=== PATIENT | female | born 1950 | race Caucasian/White ===

== ENCOUNTER 2020-07-05 10:07 | Outpatient (CLI) | payer MEDICARE, SELFPAY ==
--- NOTE | ~2020-07-05 | MM_ITS ---
EXAMINATION: MM screening sharon BI w suly HISTORY: Screening mammogram TECHNIQUE: Craniocaudal and mediolateral oblique 3-D tomosynthesis images were obtained and synthetic 2-D images were generated. CAD analysis was submitted and interpreted. COMPARISON: 04/13/2019, 01/29/2018, 05/22/2012 bilateral digital screening mammogram examinations BREAST PARENCHYMAL COMPOSITION: FINDINGS: Numerous bilateral benign microcalcifications are noted. There is no evidence of suspicious mass, calcification, or architectural distortion to suggest malignancy in either breast. There has b een no suspicious interval change. IMPRESSION: 1. No mammographic evidence of malignancy. 2. Recommend routine screening mammography in one year. BI-RADS Category 2: Benign finding(s). Reviewed, dictated and finalized at location A. OPERATOR
== END 2020-07-05 10:08 | disposition home or self-care (01) ==
PROVIDERS: PCP Family Medicine; Visit Provider Family Medicine
DX: Z12.31 Encounter for screening mammogram for malignant neoplasm of breast (principal)
CPT/HCPCS: 77063; 77067

== ENCOUNTER → 2021-02-22 13:47 | Outpatient (CLI) | payer MEDICARE, SELFPAY ==
--- NOTE | ~2021-02-22 | XR_ITS ---
EXAMINATION: XR knee LT min 4V DATE: 02/22/2021 14:14 INDICATION: Left knee pain. TECHNIQUE: 4 views of left knee were obtained. COMPARISON: None. FINDINGS: Bone alignment is normal. No fracture. Joint spaces are normal. There is a small knee joint effusion. IMPRESSION: 1. Small left knee joint effusion. Reviewed, dictated and finalized at location A.
== END ==
PROVIDERS: PCP Family Medicine; Visit Provider Physician Assistant
DX: M25.562 Pain in left knee (principal); M25.462 Effusion, left knee
CPT/HCPCS: 73564

== ENCOUNTER 2021-06-27 00:16 | Day surgery (SDC) | payer MEDICARE, SELFPAY ==
[2021-06-15 14:32] VITALS: BMI 24.0
[2021-06-27 11:11] VITALS: BP 180/102; PULSE 110; RESP 18; TEMP 36.3; O2SAT 97
[2021-06-27] MEDS: LACTATED RINGERS 1,000 ML 150 ML IV CONT (11:13)
--- NOTE | 2021-06-27 11:13 | WPDGICN ---
Assessment and Plan Assessment and plan (1) Encounter for screening colonoscopy: Code(s): Z12.11 - Encounter for screening for malignant neoplasm of colon Status: Acute Assessment and Plan: Patient presents for neoplasia screening today. it is been 10 years since last exam. She appears to be at average risk for colon polyps. GI Consult Note Consult date/time: 06/27/21 11:13 HPI: Deedee Holbrook is a 70 year old female Presents for screening colonoscopy. Patient reports that her weight appetite bowel movements are normal. She denies abdominal pain. She has had no bleeding. Family history is noncontributory. She presents today for neoplasia screening. Review of Systems Review of Systems: All systems reviewed & are unremarkable except as noted in HPI and below PMFSH Past Medical History Medical History Actinic keratosis Cataract Family History Family History Father Hypertension Patient's father is Cerebrovascular accident Mother Hypertension Patient's mother is Family history of chronic obstructive pulmonary disease Family history of congestive heart failure Social History Social History Smoking end date: 07/15/81 Alcohol intake: current Alcohol use details: occasional Living arrangements: with family Spiritual care concerns: No Meds Home Medications and Allergies Home Medications Medication Instructions Recorded Confirmed Type calcium carbonate 600 mg-vitamin 1 cap PO BID cap 05/15/19 06/19/21 History D3 5 mcg (200 unit) capsule trazodone 50 mg tablet See Rx Instructions .ROUTE 08/22/20 06/19/21 Rx .COMPLEX #90 tablet hydrochlorothiazide 12.5 mg capsule See Rx Instructions .ROUTE 11/17/20 06/19/21 Rx .COMPLEX #90 cap terbinafine HCl 250 mg tablet See Rx Instructions .ROUTE .COMPLEX 04/07/21 06/19/21 History ibuprofen 200 mg tablet 600 mg PO Q6H PRN tablet 04/11/21 06/19/21 History alendronate 70 mg tablet 70 mg PO WEEKLY #13 tablet 06/05/21 06/19/21 Rx irbesartan 300 mg tablet See Rx Instructions .ROUTE 06/14/21 06/19/21 Rx .COMPLEX #90 tablet sertraline 50 mg PO DAILY 06/15/21 06/19/21 History Allergies Allergy/AdvReac Type Severity Reaction Status Date / Time No Known Allergies Allergy Verified 06/27/21 11:09 Vital Signs Vital Signs - 24 hr 06/27/21 11:11 Temperature 97.3 F L Pulse Rate 110 H Respiratory Rate 18 Blood Pressure 180/102 H Pulse Oximetry 97 Exam Narrative: Physical exam reveals patient be alert. Vital signs stable. HEENT exam is unremarkable. Patient is anicteric. Lungs are clear to auscultation and percussion. Heart is without murmur or extra sounds. Abdominal exam bowel sounds are present soft nontender with no hepatosplenomegaly. Digital external rectal exam is normal.
--- NOTE | 2021-06-27 11:23 | P.PNAN_ITS ---
Anes - Initial Pre Proc Eval Procedure: Operation Date: 06/27/21 12:30 Proposed Procedures p Screening Colonoscopy - Satinder Tavares MD Date/Time: 06/27/21 11:23 Surgeon: Satinder Tavares MD Pre Op Diagnosis: neoplasm screening Patient Data Age: 70 Gender: F Height: 1.63 m Weight: 61 kg Last Vital Signs Temp 97.3 F L 06/27/21 11:11 Pulse 110 H 06/27/21 11:11 Resp 18 06/27/21 11:11 BP 180/102 H 06/27/21 11:11 Pulse Ox 97 06/27/21 11:11 Allergies Allergy/AdvReac Type Severity Reaction Status Date / Time No Known Allergies Allergy Verified 06/27/21 11:09 Home Medications Medication Instructions Recorded Confirmed Type calcium carbonate 600 mg-vitamin 1 cap PO BID cap 05/15/19 06/19/21 History D3 5 mcg (200 unit) capsule trazodone 50 mg tablet See Rx Instructions .ROUTE 08/22/20 06/19/21 Rx .COMPLEX #90 tablet hydrochlorothiazide 12.5 mg capsule See Rx Instructions .ROUTE 11/17/20 06/19/21 Rx .COMPLEX #90 cap terbinafine HCl 250 mg tablet See Rx Instructions .ROUTE .COMPLEX 04/07/21 06/19/21 History ibuprofen 200 mg tablet 600 mg PO Q6H PRN tablet 04/11/21 06/19/21 History alendronate 70 mg tablet 70 mg PO WEEKLY #13 tablet 06/05/21 06/19/21 Rx irbesartan 300 mg tablet See Rx Instructions .ROUTE 06/14/21 06/19/21 Rx .COMPLEX #90 tablet sertraline 50 mg PO DAILY 06/15/21 06/19/21 History Patient hx anesthesia problems: none Family hx anesthesia problems: none Results Review: All pre-operative results and documents have been reviewed as part of the pre-operative evaluation. [facility] Past Medical History Medical History Actinic keratosis Cataract Family History Family History Father Hypertension Patient's father is Cerebrovascular accident Mother Hypertension Patient's mother is Family history of chronic obstructive pulmonary disease Family history of congestive heart failure Social History Social History (Reviewed 06/19/21 @ 11:00 by Michelle Kern [facility]) Smoking end date: 07/15/81 Alcohol intake: current Alcohol use details: occasional Living arrangements: with family Spiritual care concerns: No Anes - Eval Final PreProcedure Day of Procedure 06/27/21 11:23 Patient weight: normal Heart: regular rate and rhythm Lungs: clear to auscultation Airway: Mallampati scale class II Neurological: alert and oriented Last oral intake: >/= 8 hours ASA classification: II Emergent: no Anesthetic plan: proceed Anesthesia type and monitoring: general GIVS and standard monitoring Results Review: All pre-operative results and documents have been reviewed as part of the pre-operative evaluation. Informed Consent: The patient's anesthetic plan and its attendant risks and benefits were discussed with the patient/family/POA. Questions were solicited and answers provided to the satisfaction of the patient/family/POA.
[2021-06-27 11:38] VITALS: BP 99/57; PULSE 91; RESP 20; O2SAT 100
[2021-06-27 11:48] VITALS: BP 109/66; PULSE 94; RESP 25; O2SAT 100
[2021-06-27 11:58] VITALS: BP 125/84; PULSE 84; RESP 20; O2SAT 95
== END 2021-06-27 12:08 | disposition home or self-care (01) ==
PROVIDERS: PCP Family Medicine; Visit Provider Internal Medicine Gastroenterology
PROC: 0DJD8ZZ Inspection of Lower Intestinal Tract, Via Natural or Artificial Opening Endoscopic (ICD-10-PCS; CPT 45378; principal; 2021-06-27 12:30)
DX: Z12.11 Encounter for screening for malignant neoplasm of colon (principal); K64.8 Other hemorrhoids; L57.0 Actinic keratosis
CPT/HCPCS: G0121; J2001; J2704; J7120

== ENCOUNTER 2021-09-05 08:38 | Outpatient (CLI) | payer MEDICARE, SELFPAY ==
--- NOTE | ~2021-09-05 | MM_ITS ---
EXAMINATION: MM screening sharon BI w suly HISTORY: Screening mammogram TECHNIQUE: Craniocaudal and mediolateral oblique 3-D tomosynthesis images were obtained and synthetic 2-D images were generated. CAD analysis was submitted and interpreted. COMPARISON: 07/05/2020, 04/13/2019, 01/29/2018 bilateral screening mammogram examinations BREAST PARENCHYMAL COMPOSITION: There are scattered areas of fibroglandular density. FINDINGS: There is no evidence of suspicious mass, calcification, or architectural distortion to sugg est malignancy in either breast. There has been no suspicious interval change. IMPRESSION: 1. No mammographic evidence of malignancy. 2. Recommend routine screening mammography in one year. BI-RADS Category 2: Benign finding(s). Reviewed, dictated and finalized at location A. P KILLER
== END 2021-09-05 08:39 | disposition home or self-care (01) ==
LOC: ANHIMG 08:40
PROVIDERS: PCP Family Medicine; Visit Provider Physician Assistant Medical
DX: Z12.31 Encounter for screening mammogram for malignant neoplasm of breast (principal)
CPT/HCPCS: 77063; 77067

== ENCOUNTER 2021-11-20 08:43 | Outpatient (CLI) | payer MEDICARE, SELFPAY ==
--- NOTE | ~2021-11-20 | DEXA_ITS ---
Bone Density Report Name: VICK KO Age: 71 Sex: Female Ethnicity: White Date of : 1950 Indication: monitoring treatment; height loss; prior fracture; pots menopausal Referring Provider: CONNOR, TOMI Flower Study: Bone densitometry was performed. Exam Date: November 20, 2021 Accession number: [id number] Bone Density: Region BMD T-score Z-score Classification AP Spine(L2, L3) 1.153 0.9 3.1 Normal Femoral Neck (Left) 0.634 -1.9 -0.1 Osteopenia Total Hip (Left) 0.837 -0.9 0.7 Normal Femoral Neck (Right) 0.659 -1.7 0.1 Osteopenia Total Hip (Right) 0.820 -1.0 0.6 Normal Total Hip Mean 0.829 -1.0 0.7 Normal World Health Organization criteria for BMD impression classify patients as: Normal (T-score at or above -1.0), Osteopenia (T-score between -1.0 and -2.5), or Osteoporosis (T-score at or below -2.5). 10-year Fracture Risk: FRAX not reported because: Treated for osteoporosis Previous Exams: Region Exam Age BMD T-score BMD Change BMD Change Date g/cm2 vs Baseline vs Previous AP Spine (L2-L3) 11/20/2021 71 1.153 0.9 0.122 (11.9%)* 0.008 (0.7%) 01/29/2018 67 1.145 0.8 0.114 (11.0%)* 0.114 (11.0%)* 03/31/2015 64 1.031 -0.2 Total Hip(Left) 11/20/2021 71 0.837 -0.9 0.057 (7.3%)* -0.009 (-1.1%) 01/29/2018 67 0.847 -0.8 0.066 (8.5%)* 0.066 (8.5%)* 03/31/2015 64 0.781 -1.3 Total Hip(Right) 11/20/2021 71 0.820 -1.0 0.085 (11.6%)* -0.053 (-6.1%) 01/29/2018 67 0.873 -0.6 0.138 (18.8%)* 0.138 (18.8%)* 03/31/2015 64 0.735 -1.7 *Denotes significance at 95% confidence level, LSC for AP Spine = 0.022 g/cm2, LSC for Total Hip = 0.027 g/cm2 Clinical Information Provided by Patient: Has had a low trauma fracture Is being treated for osteoporosis Has used the following medications: Fosamax (i.e. alendronate), Vitamin D, Calcium Patient maximum height was 66 Menopause Age: 50 No regular weight bearing exercise Does not regularly consume dairy products Drinks caffeinated beverages Onset of menses at age 13 Number of children 2 Impression: The patient has low bone mass, based on the Left Femoral Neck T-score. The patient has risk factors, including: previous fracture. The BMD for the Total Hip(Right) decreased, changing by -6.1% since the last DXA exam. Discussion: SIGNIFICANT BONE LOSS OBSERVED. Adherence to therapy (including calcium and vitamin D intake) should be assessed. If complianc
== END 2021-11-20 08:44 | disposition home or self-care (01) ==
LOC: ANHIMG 08:44
PROVIDERS: PCP Family Medicine; Visit Provider Physician Assistant Medical
DX: Z78.0 Asymptomatic menopausal state (principal); M85.89 Other specified disorders of bone density and structure, multiple sites
CPT/HCPCS: 77080

== ENCOUNTER 2022-05-21 13:35 | Emergency (ER) | payer MEDICARE, SELFPAY ==
--- NOTE | ~2022-05-21 | XR_ITS ---
EXAMINATION: XR wrist LT min 3V DATE: 05/21/2022 14:01 INDICATION: Left wrist pain. Fall. TECHNIQUE: 3 views of left wrist were obtained. COMPARISON: None. FINDINGS: Bone alignment is normal. No fracture. There is severe osteoarthritis of first carpometacar pal joint. IMPRESSION: 1. Severe osteoarthritis of first carpometacarpal joint. Reviewed, dictated and finalized at location A. 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
[2022-05-21 13:44] VITALS: BP 194/64; PULSE 75; RESP 12; TEMP 36.9; O2SAT 100
--- NOTE | 2022-05-21 14:10 | ED.UPPEXIN ---
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 States she tripped and landed with hands in front of her. Pain is worse with twisting movements. Has not taken anything for pain. Denies numbness, tingling or weakness of the hand. Denies swelling, bruising, or apparent deformity. Related Data Home Medications Medication Instructions Recorded Confirmed calcium carbonate 600 mg-vitamin 1 cap PO BID 05/15/19 06/19/21 D3 5 mcg (200 unit) capsule (Calcium 600 + D(3)) terbinafine HCl 250 mg tablet See Rx Instructions .Route .COMPLEX 04/07/21 06/19/21 ibuprofen 200 mg tablet 600 mg PO Q6H PRN Pain 04/11/21 06/19/21 Allergies Allergy/AdvReac Type Severity Reaction Status Date / Time No Known Allergies Allergy Verified 05/14/22 13:10 Review of Systems Review of Systems: CONSTITUTIONAL: Denies body aches, fever, chills CARDIOVASCULAR: Denies chest pain, palpitations, or edema. RESPIRATORY: Denies cough or dyspnea. SKIN: Denies rash, itching, or wounds. MUSCULOSKELETAL:Reports left wrist pain NEUROLOGIC: Denies headache, numbness, tingling, or weakness. All systems reviewed & are unremarkable except as noted in HPI and below PMFSH Past Medical History Medical History Actinic keratosis Cataract Family History Family History Father Hypertension Patient's father is Cerebrovascular accident Mother Hypertension Patient's mother is Family history of chronic obstructive pulmonary disease Family history of congestive heart failure Sibling Pancreatic cancer Social History Social History Smoking status: Never smoker Smoking end date: 07/15/81 Alcohol intake: current Alcohol use details: occasional Spiritual care concerns: No Comments At time of signature, I have reviewed and agree with nursing past medical, surgical, social and family history unless otherwise noted. Please see nursing chart for further information. There is no relevant family history pertinent to the presenting complaint Exam Narrative: GENERAL: Well-appearing CHEST: Speaks in full sentences. No respiratory distress. HEART: Regular rate and rhythm. Normal and equal peripheral pulses. EXTREMITIES: Left hand has normal strength and sensation, slightly limited range of motion to wrist, subjective pain with movement. Tender to palpation over distal ulna. No swelling, redness, or ecchymosis, No open wounds, or obvious deformity; pulse palpable and equal bilaterally, skin warm, dry, pink. Capillary refill less than 3 seconds. SKIN: Warm, dry, no rash. NEURO: Alert and oriented x3. Course Course Emergency Course: Patient is aware of diagnosis, understands and agrees to treatment plan. Anticipatory guidance given. Patient agrees to follow-up as directed and is aware of reasons to seek care at the emergency department. Portions of this record may have been created with voice recognition software Level of Care: Express Care Visit Vital Signs Vital signs: Vital Signs Temperature 98.4 F 05/21/22 13:44 Pulse Rate 75 05/21/22 13:44 Respiratory Rate 12 05/21/22 13:44 Blood Pressure 194/64 H 05/21/22 13:44 Pulse Oximetry 100 05/21/22 13:44 Oxygen Delivery Room Air 05/21/22 13:44 Temperature 98.4 F 05/21/22 13:44 Pulse Rate 75 05/21/22 13:44 Respiratory Rate 12 05/21/22 13:44 Blood Pressure 194/64 H 05/21/22 13:44 Pulse Oximetry 100 05/21/22 13:44 Oxygen Delivery Room Air 05/21/22 13:44 Reviewed Pr
== END 2022-05-21 14:23 | disposition home or self-care (01) ==
PROVIDERS: Emergency Provider Nurse Practitioner Family; PCP Family Medicine
DX: S66.912A Strain of unspecified muscle, fascia and tendon at wrist and hand level, left hand, initial encounter (principal); W01.0XXA Fall on same level from slipping, tripping and stumbling without subsequent striking against object, initial encounter; Z87.891 Personal history of nicotine dependence
CPT/HCPCS: 73110; 99213; G0463

== ENCOUNTER → 2022-09-07 10:35 | Outpatient (CLI) | payer MEDICARE, SELFPAY ==
--- NOTE | ~2022-09-07 | XR_ITS ---
EXAMINATION: XR chest 2V 09/07/2022 10:53 INDICATION: Shortness of breath with chest heaviness PROCEDURE: 2 view chest COMPARISON: 09/14/2017 FINDINGS: The lungs are clear. The cardiomediastinal silhouette is within normal limits. There are no pleural effusions. There is no pneumothorax suspected. IMPRESSION: 1: NO ACUTE CARDIOPULMONARY DISEASE. Reviewed, dictated and finalized at location B. SPINNER
== END ==
PROVIDERS: PCP Family Medicine; Visit Provider Physician Assistant
DX: R06.02 Shortness of breath (principal)
CPT/HCPCS: 71046

== ENCOUNTER → 2022-09-11 14:51 | Outpatient (CLI) | payer MEDICARE, SELFPAY ==
--- NOTE | ~2022-09-11 | MM_ITS ---
EXAMINATION: MM screening sharon BI w suly HISTORY: Screening mammogram TECHNIQUE: Craniocaudal and mediolateral oblique 3-D tomosynthesis images were obtained and synthetic 2-D images were generated. CAD analysis was submitted and interpreted. COMPARISON: September 05, 2021, July 05, 2020, April 13, 2019 bilateral screening mammogram ex aminations BREAST PARENCHYMAL COMPOSITION: There are scattered areas of fibroglandular density. FINDINGS: Multiple scattered bilateral benign microcalcifications. There is no evidence of suspicious mass, calcification, or architectural distortion to suggest malignancy in either breast. There has b een no suspicious interval change. IMPRESSION: 1. No mammographic evidence of malignancy. 2. Recommend routine screening mammography in one year. BI-RADS Category 2: Benign finding(s). Reviewed, dictated and finalized at location A. EL SPRAYER
== END ==
PROVIDERS: PCP Family Medicine; Visit Provider Physician Assistant
DX: Z12.31 Encounter for screening mammogram for malignant neoplasm of breast (principal)
CPT/HCPCS: 77063; 77067

== ENCOUNTER 2022-10-31 09:49 | Outpatient (CLI) | payer MEDICARE, SELFPAY ==
--- NOTE | 2022-10-31 10:14 | EST_ITS ---
Patient Info Name: Deedee Holbrook Age: 72 years : 1950 Gender: Female Ht: 62 in Wt: 155 lbs BSA: 1.78 m2 HR: 94 bpm BP: 167 / 85 mmHg Heart Rhythm: Sinus Rhythm Technical Quality: Fair Exam Date: 10/31/2022 10:33 AM Exam Location: [facility] Pulmonary Patient Status: Outpatient Admit Date: 10/31/2022 Staff Ordering Physician: Adebayo Junior PA-C Ore Buyer: Vanessa Pedro RDCS Attending Provider: DR. MEDINA Referring Physician: Sandi TIDWELL; Exam Type: CA stress echo Study Info Indications R07.9 - Chest pain, unspecified Treadmill exercise stress echocardiogram is performed. Summary 1. 1. Negative Aubrey exercise stress test for ischemic ST changes by ECG criteria. 2. 2. Poor functional capacity, achieving 4.6 METs of workload. 3. 3. Baseline hypertension with hypertensive response to exercise. 4. 4. Rapid HR response to exercise. 5. 5. Appropriate HR recovery at 1 minute post exercise. 6. 6. Negative stress echocardiogram for ischemia by wall motion analysis. 7. 7. Patient informed of the above results. Stress Echo Findings Left Ventricle Appropriate increase in LV endocardial thickening with systole. Appropriate augmentation of contractility with systole. No wall motion abnormality. Left Ventricle Normal LV systolic function, no wall motion abnormality. Protocol: Aubrey Stress ECG Details Stage: REST Duration (min): 2 min : 7 sec Speed (mph): 0.0 Grade (%): 0 HR (bpm): 93 SBP (mmHg): 167 DBP (mmHg): 85 METS: --- Stage: REST Duration (min): 13 min : 54 sec Speed (mph): 0.0 Grade (%): 0 HR (bpm): 85 SBP (mmHg): 167 DBP (mmHg): 85 METS: --- Stage: STAGE 1 Duration (min): 1 min : 0 sec Speed (mph): 1.7 Grade (%): 10 HR (bpm): 131 SBP (mmHg): 167 DBP (mmHg): 85 METS: --- Stage: STAGE 1 Duration (min): 2 min : 0 sec Speed (mph): 1.7 Grade (%): 10 HR (bpm): 157 SBP (mmHg): 167 DBP (mmHg): 85 METS: --- Stage: STAGE 1 Duration (min): 2 min : 10 sec Speed (mph): 0.0 Grade (%): 0 HR (bpm): 159 SBP (mmHg): 167 DBP (mmHg): 85 METS: --- Stage: RECOVERY Duration (min): 0 min : 50 sec Speed (mph): 0.0 Grade (%): 0 HR (bpm): 147 SBP (mmHg): 167 DBP (mmHg): 85 METS: --- Stage: RECOVERY Duration (min): 1 min : 50 sec Speed (mph): 0.0 Grade (%): 0 HR (bpm): 121 SBP (mmHg): 214 DBP (mmHg): 107 METS: --- Stage: RECOVERY Duration (min): 2 min : 50 sec Speed (mph): 0.0 Grade (%): 0 HR (bpm): 108 SBP (mmHg): 198 DBP (mmHg): 95 METS: --- Stage: RECOVERY Duration (min): 2 min : 51 sec Speed (mph): 0.0 Grade (%): 0 HR (bpm): 108 SBP (mmHg): 198 DBP (mmHg): 95 METS: --- Rest HR: 85 bpm Peak HR: 159 bpm Rest Sys BP: 167 mmHg Peak Sys BP: 214 mmHg Max Pred HR: 148 bpm % Max Pred HR: 107 % Target HR: 126 bpm Max RPP: 34,026 bpm*mmHg Cervantes Score: -8 BP Response: Patient ex
== END 2022-10-31 09:50 | disposition home or self-care (01) ==
PROVIDERS: PCP Family Medicine; Visit Provider Physician Assistant
DX: R07.9 Chest pain, unspecified (principal); R06.02 Shortness of breath; I10 Essential (primary) hypertension
CPT/HCPCS: 93351

== ENCOUNTER 2023-07-24 14:35 | Outpatient (CLI) | payer MEDICARE, SELFPAY ==
--- NOTE | ~2023-07-24 | XR_ITS ---
Lumbosacral Spine: AP, oblique, and lateral views Clinical History: Pain Findings: There is mild dextroscoliosis of the thoracolumbar spine. There is severe degenerative dukes ge at T12-L1. There is moderate degenerative disc changes throughout the lumbar spine. There is mild to moderate facet arthropathy at the lower lumbar spine. The sacroiliac joints are normally outlined. Impression: [id number] degenerative spondylosis, as above. Mild dextroscoliosis of the thoracolumbar spine. Reviewed, dictated and finalized at location M. 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 Mild dextroscoliosis of the thoracolumbar spine.
== END 2023-07-24 14:36 | disposition home or self-care (01) ==
PROVIDERS: PCP Family Medicine; Visit Provider Family Medicine
DX: M47.895 Other spondylosis, thoracolumbar region (principal); M41.85 Other forms of scoliosis, thoracolumbar region; M81.0 Age-related osteoporosis without current pathological fracture
CPT/HCPCS: 72110

== ENCOUNTER → 2023-09-03 10:04 | Outpatient (CLI) | payer MEDICARE, SELFPAY ==
--- NOTE | ~2023-09-03 | MR_ITS ---
EXAMINATION: MR lumbar spine wo con DATE: 09/03/2023 10:46 INDICATION: Low back pain, failed physical therapy. TECHNIQUE: Magnetic resonance imaging (MRI) of the lumbar spine was performed without intravenous con trast. Sequences included sagittal T2-weighted FSE, sagittal T2-weighted FS FSE, sagittal T1-weighted FSE, and axial T2-weighted FSE. COMPARISON: Radiographs dated 07/24/2023 FINDINGS: 12 degrees lumbar levoscoliosis and 8 degrees thoracolumbar dextrocurvature. 4 mm retrolisthesis T12 on L1, 2 mm retrolisthesis L1 on L2 and 3 mm retrolisthesis L3 on L4 chronic mild anterior wedging at T12. Lumbar vertebral body heights are normal. Severe disc height loss with fibrovascular degenerati ve endplate changes at T12-L1 and L4-L5. Severe posterior disc height loss at L1-L2 and L2-L3 with ad ditional degenerative endplate changes. Moderate disc height loss at T11-T12, L3-L4 and L5-S1. No pat hologic marrow replacing process. The conus medullaris terminates at L1-L2. There is normal signal in the caudal spinal cord. Paravertebral soft tissues are unremarkable. The following disc levels are s pecifically discussed: T11-T12: Disc is mildly bulging with superimposed annular fissure with small left paracentral disc ex trusion with disc degeneration extending 2 mm caudal to the level of T12. There is moderate bilateral facet osteoarthritis. There is mild left neural foraminal stenosis. There is mild central canal sten osis. T12-L1: Disc is bulging with superimposed annular fissure with small left paracentral disc extrusion with disc material extending 3 mm caudal to the level of the superior endplate of L1. There is mild b ilateral facet joint osteoarthritis. There is moderate bilateral neural foraminal stenosis. There is mild central canal stenosis. L1-L2: Disc is bulging with superimposed annular fissure with small central to left paracentral disc extrusion with disc material extending 3 mm caudal to the level of the superior endplate of L2. There is hypertrophy of the ligamentum flavum. There is mild to moderate bilateral facet joint osteoarthr itis. There is moderate right and mild left neural foraminal stenosis. There is mild to moderate cent ral canal stenosis. L2-L3: Disc is bulging. There is hypertrophy of the ligamentum flavum. There is mild to moderate harriett ateral facet joint osteoarthritis. There is mild to moderate left and moderate right neural foraminal stenosis. There is moderate central canal stenosis. L3-L4: Disc is bulging with annular fissure and broad-based disc extrusion with disc material extendi ng 2 mm cephalad and caudal to the level of the endplates from foraminal zone to foraminal zone. Ther e is mild to moderate bilateral facet joint osteoarthritis. There is moderate right and mild to moder ate left neural foraminal stenosis. There is moderate central canal stenosis. L4-L5: Disc is bulging with annular fissure and small central disc extrusion with disc material exten ding up to 4 mm cephalad to the level of the inferior endplate of L4. There is hypertrophy of the lig amentum flavum. There is mild left and mild to moderate right facet joint osteoarthritis. There is m oderate to severe bilateral neural foraminal stenosis. There is moderate central canal stenosis in mo derate narrowing of the left and right lateral recesses. L5-S1: Disc is bulging. There is moderate left and severe right facet joint osteoarthritis. There is mild right and mild to moderate left neural foraminal stenosis. There is mild central canal stenosis. IMPRESSION: 1. Mild S-shaped scoliosis of the lumbar and lower thoracic spine with severe spondylosis. Reviewed, dictated and finalized at location A. LER CRANE OPERATOR
== END ==
PROVIDERS: PCP Family Medicine; Visit Provider Nurse Practitioner Family
DX: M41.86 Other forms of scoliosis, lumbar region (principal); M41.84 Other forms of scoliosis, thoracic region; M43.06 Spondylolysis, lumbar region; M43.05 Spondylolysis, thoracolumbar region
CPT/HCPCS: 72148

== ENCOUNTER 2024-01-20 11:13 | Outpatient (CLI) | payer MEDICARE, SELFPAY ==
--- NOTE | 2024-01-20 | ECG_ITS ---
Test Date: 2024-01-20 11:44:01 Measurements Intervals Glade Rate: 83 P: 76 MD: 147 QRS: 65 QRSD: 82 T: 52 QT: 361 QTc: 426 Interpretive Statements SINUS RHYTHM POSSIBLE RIGHT ATRIAL ENLARGEMENT POSSIBLE LEFT ATRIAL ENLARGEMENT BORDERLINE ST ABNORMALITY- ANTEROLAT/INF LEADS BORDERLINE ECG No previous ECG available for comparison Electronically Signed On 01-20-2024 12:04:25 CDT by Campos Turcios D.O.
[2024-01-20 11:40] LABS: Basophils Absolute Auto 0.1 K/mm3 (0.0-0.1); Basophils Percent Auto 0.9 % (0.2-1.2); Eosinophils Absolute Auto 0.1 K/mm3 (0-0.3); Eosinophils Percent Auto 1.4 % (0-4.4); Hemoglobin 13.5 g/dL (12.0-15.0); Immature Granulocyte Absolute 0.04 K/mm3 (0.00-0.031); Immature Granulocyte Percent A 0.5 % (0-0.5); Lymphocytes Absolute Auto 2.28 K/mm3 (0.9-3.2); Lymphocytes Percent Auto 25.9 % (18.3-44.2); Mean Corpuscular HGB Conc 32.9 g/dl (32-36); Mean Corpuscular Hemoglobin 31.6 pg (26-34); Mean Platelet Volume 10.3 fl (7.4-10.4); Monocytes Absolute Auto 0.9 K/mm3 (0.1-0.6); Monocytes Percent Auto 10.7 % (2.6-8.5); Neutrophils Absolute Auto 5.3 K/mm3 (1.3-6.7); Neutrophils Percent Auto 60.6 % (45.5-73.1); Platelet Count Result 231 k/mm3 (150-375); Red Blood Count 4.27 M/mm3 (4.2-5.4); Red Cell Distribution Width 12.6 % (11.5-14.5); White Blood Count 8.8 K/mm3 (4.5-10.0)
[2024-01-20 11:48] LABS: Appearance Urine Clear (Clear); Bilirubin Urine Negative (Negative); Blood Urine Negative (Negative); Color Urine Yellow (Yellow); Glucose Urine UA Negative (Negative); Ketones Urine Negative (Negative); Leukocyte Esterase Ur Negative LEU/UL (Negative); Nitrate Urine Negative (Negative); Protein Urine Negative (Negative); Specific Grav Ur 1.011 (1.001-1.035); Urobilinogen Urine 0.2 mg/dL (<2.0); pH Urine 5.5 (5.0-9.0)
[2024-01-20 11:50] LABS: Add Urine Microscopic? NO
[2024-01-20 11:54] LABS: Alanine Aminotransferase 22 U/L (6-35); Albumin Level 4.7 g/dL (3.5-5.1); Alkaline Phosphatase 73 U/L (38-126); Anion Gap 7 mmol/L (4-12); Aspartate Amino Transferase 38 U/L (14-36); Bilirubin,Total 0.7 mg/dL (0.2-1.3); Blood Urea Nitrogen 19 mg/dL (7-17); CRP < 0.5 mg/dL (<1.0); Calcium 9.7 mg/dL (8.4-10.2); Carbon Dioxide 30 mmol/L (22-30); Chloride 99 mmol/L (98-107); Estimated Glomerular Filt Rate 54; Glucose 91 mg/dL (65-110); Potassium 4.5 mmol/L (3.4-5.0); Sodium 136 mmol/L (137-145)
[2024-01-20 12:06] LABS: Erythrocyte Sedimentation Rate 14 mm/hr (0-20)
== END 2024-01-20 11:14 | disposition home or self-care (01) ==
PROVIDERS: PCP Family Medicine; Visit Provider Nurse Practitioner Family
DX: Z01.818 Encounter for other preprocedural examination (principal); R94.31 Abnormal electrocardiogram [ECG] [EKG]
CPT/HCPCS: 36415; 80053; 81003; 85025; 85652; 86140; 93005

== ENCOUNTER 2024-05-05 09:27 | Outpatient (CLI) | payer MEDICARE, SELFPAY ==
--- NOTE | ~2024-05-05 | XR_ITS ---
[id number] Ordering provider: Sully Ansari, CREDIT ANALYST-C History: . bilat knee pain . Comparison: None. FINDINGS: BONES: No acute fracture or dislocation. JOINT SPACES: Normal. SOFT TISSUES: Normal. IMPRESSION: No acute osseous abnormality left knee. Reviewed, dictated and finalized at location A.
--- NOTE | ~2024-05-05 | XR_ITS ---
[id number] Ordering provider: Sully Ansari, AUTO CLUB TRAVEL COUNSELOR-C History: . Bilat knee pain . Comparison: None. FINDINGS: BONES: No acute fracture or dislocation. JOINT SPACES: Normal. SOFT TISSUES: Normal. IMPRESSION: No acute osseous abnormality right knee. Reviewed, dictated and finalized at location A.
== END 2024-05-05 09:28 | disposition home or self-care (01) ==
PROVIDERS: PCP Family Medicine; Visit Provider Nurse Practitioner Family
DX: M25.561 Pain in right knee (principal); M25.562 Pain in left knee
CPT/HCPCS: 73560

== ENCOUNTER 2024-09-01 11:38 | Emergency (ER) | payer MEDICARE, SELFPAY ==
--- NOTE | ~2024-09-01 | XR_ITS ---
Right foot Technique: AP, oblique, and lateral views were obtained. Clinical History: Pain Findings: No acute fracture or dislocation is seen. Osseous alignment is anatomic. Joint spaces are p reserved without erosive or degenerative change. Soft tissues are unremarkable. Impression: Unremarkable right foot radiographs. Reviewed, dictated and finalized at location . GRATIVE MEDICINE PHYSICIAN Impression: Unremarkable right foot radiographs.
--- NOTE | 2024-09-01 11:40 | ED_ITS ---
HPI - Extremity Injury (Lower) General Chief Complaint: Extremity Problem,Nontraumatic Stated Complaint: Injured Right Foot Source: patient and RN notes reviewed Mode of arrival: ambulatory Limitations: no limitations History of Present Illness HPI Narrative: Patient is a 73-year-old presents to the [facility] with complaints of right foot pain. She complained of pain to the dorsum right. She denies injury. States that she has noted mild swelling to the foot. She reports decreased range of motion. She is neurovascularly intact distally. Sensation is intact. Related Data Home Medications ?Medication ?Instructions ?Recorded ?Confirmed ?Last Taken ?Type calcium 600 mg (as 1 cap PO BID 05/15/19 04/22/24 06/26/21 History carbonate)-vitamin D3 5 mcg (200 unit) capsule (Calcium 600 + D(3)) Allergies Allergy/AdvReac Type Severity Reaction Status Date / Time No Known Allergies Allergy Verified 09/01/24 11:55 Review of Systems Review of Systems: CONSTITUTIONAL: Denies fever, chills, or sweats. EYES: Denies visual changes, redness, or discharge. ENT: Denies otalgia and sore throat CARDIOVASCULAR: Denies chest pain, palpitations, or edema. RESPIRATORY: Denies cough or dyspnea. GASTROINTESTINAL: Denies abdominal pain, nausea, vomiting, or diarrhea. GENITOURINARY: Denies dysuria or hematuria. SKIN: Denies rash or itching. MUSCULOSKELETAL: Reports right foot pain and swelling. NEUROLOGIC: Denies headache, numbness, or weakness. Pertinent positives per HPI. [facility] Past Medical History Medical History Need for hepatitis C screening test negative 2022 Cataract Actinic keratosis Surgical History Surgical History History of spinal surgery Family History Family History Father Hypertension Patient's father is Cerebrovascular accident Mother Hypertension Patient's mother is Family history of chronic obstructive pulmonary disease Family history of congestive heart failure Sibling Pancreatic cancer Social History Social History Smoking status: Never smoker Smoking end date: 07/15/81 Alcohol intake: current Alcohol use details: occasional Do You Feel Safe in your Home?: Yes Lack of Transportation: No Lack of Food: Never True Current Housing: I Have Housing Concerned About Future Housing: No Difficulty Paying Gas/Electric Bills: No Difficulty Paying for Meds: No Currently Unemployed: No Education: High School Diploma/GED Difficulty w/ Childcare or Family Care: No Living arrangements: with family Spiritual care concerns: No Comments At the time of my signature, I reviewed and agree with the nursing past medical, surgical, social, and family history. There is no relevant family history pertinent to the patient complaint. Exam Narrative: GENERAL: This is a well-nourished, well-developed patient, in no apparent distress. HEAD: normocephalic, atraumatic. EYES: PERRL. Sclera clear/white. Vision is grossly intact. EARS: External ears normal, auditory canals clear and without drainage, TMs normal without perforation. Hearing grossly intact. NOSE: External nose normal with no obvious nasal discharge, nares without redness, no rhinorrhea. THROAT: Mucous membranes moist, posterior pharynx clear. NECK: Neck supple, non-tender without lymphadenopathy, masses or thyromegaly. CARDIOVASCULAR: Regular rate and rhythm without murmurs, gallops, or rubs. RESPIRATORY: Clear to auscultation. Breath sounds equal bilaterally. No wheezes, rales, or rhonchi. GASTROINTESTINAL: Abdomen soft, non-tender, nondistended. Bowel sounds are active. No hepato-splenomegaly, or palpable masses. No guarding. SKIN: warm, intact with no suspicious lesions or rash, good texture and turgor. NEURO: awake, alert, and oriented to person, place and time. There were no obvious focal neurologic abnormalities. EXTREMITIES: Right foot tenderness to the dorsal aspect of the foot at the base of the metatarsals. Mild swelling to the foot. Distal neurovascular motor status intact. Sensation intact. Cap refill normal. BACK: Nontender without deformity or crepitance. No flank tenderness. Course Course Level of Care: Express Care Visit Vital Signs Vital signs: Vital Signs Temperature 98.2 F 09/01/24 11:46 Pulse Rate 100 09/01/24 11:46 Respiratory Rate 16 09/01/24 11:46 Blood Pressure 141/73 H 09/01/24 11:46 Pulse Oximetry 98 09/01/24 11:46 Temperature 98.2 F 09/01/24 11:46 Pulse Rate 100 09/01/24 11:46 Respiratory Rate 16 09/01/24 11:46 Blood Pressure 141/73 H 09/01/24 11:46 Pulse Oximetry 98 09/01/24 11:46 Reviewed MDM - Extremity Injury (Lower) MDM Narrative Medical decision making narrative: Ice to the area 15-20 minutes 4-6 times a day for two to three days Minimize activities that aggravate the condition Elevate above heart as much as possible to reduce swelling You may take over the counter tylenol and ibuprofen as needed for pain Follow up with your primary care provider for further evaluation and treatment as soon as possible OR if your symptoms persist, change or worsen significantly before you can contact your personal physician then please, without delay, go to the emergency department for further evaluation. Differential Diagnosis Differential diagnosis: Likely ankle sprain and strain, fracture of toe, ankle fracture and other ( Extensor tendinitis) Imaging Data Attestation: I personally reviewed and interpreted this imaging study as follows: Radiologist's impression: [address] [address] XRay Report Signed Patient: Deedee Holbrook : 1950 MR#: [id number] Age: 73 Acct:[id number] Loc: [facility] ADM Date: 09/01/24Attending Dr: Ordering Physician: Klaudia Celestin APRN Date of Service: 09/01/24 Procedure(s): XR foot RT min 3V Accession Number(s): [id number] cc: Klaudia Celestin APRN; Mikey Sarabia MD~ Right foot Technique: AP, oblique, and lateral views were obtained. Clinical History: Pain Findings: No acute fracture or dislocation is seen. Osseous alignment is anatomic. Joint spaces are preserved without erosive or degenerative change. Soft tissues are unremarkable. Impression: Unremarkable right foot radiographs. Reviewed, dictated and finalized at [facility]. 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 It is intended for usiu-vr-oedw communication. It is written in medical language and may contain unfamiliar abbreviations or verbiage. Medical documents are intended to carry relevant information, facts as evident, and the clinical opinion of the practitioner at the time of the encounter. This report may have been done utilizing a voice recognition system. Attempts have been made to correct errors. However, there may be uncorrected grammatical, spelling, and recognition errors present. The file time of this note does not necessarily represent the time of service. Dictated By: Timoteo Colón MD 09/01/24 1156 Signed By: <Electronically signed by Timoteo Colón MD in OV> 09/01/24 1157 Critical Care Time Critical Care Time Critical Care Time: No Discharge Plan Discharge Clinical Impression: Extensor tendinitis of foot Patient Disposition: Home, Self-Care Condition: Stable Instructions: Tendinitis (ED) Additional Instructions: Ice to the area 15-20 minutes 4-6 times a day for two to three days Minimize activities that aggravate the condition Elevate above heart as much as possible to reduce swelling You may take over the counter tylenol and ibuprofen as needed for pain Follow up with your primary care provider for further evaluation and treatment as soon as possible OR if your symptoms persist, change or worsen significantly before you can contact your personal physician then please, without delay, go to the emergency department for further evaluation. Patient Language: Hungarian Prescriptions: New naproxen 500 mg tablet 500 mg PO BID PRN (Reason: pain) Qty: 20 0RF No Action Calcium 600 + D(3) 600 mg calcium- 200 unit capsule 1 cap PO BID irbesartan 300 mg tablet See Rx Instructions .ROUTE .COMPLEX Qty: 90 3RF Dose Instruction: TAKE 1 TABLET BY MOUTH EVERY DAY Rx Instructions: TAKE 1 TABLET BY MOUTH EVERY DAY hydrochlorothiazide 12.5 mg capsule See Rx Instructions .ROUTE .COMPLEX Qty: 90 1RF Dose Instruction: TAKE 1 CAPSULE BY MOUTH EVERY DAY Rx Instructions: TAKE 1 CAPSULE BY MOUTH EVERY DAY amlodipine 5 mg tablet 5 mg PO DAILY Qty: 90 1RF trazodone 50 mg tablet See Rx Instructions .ROUTE .COMPLEX Qty: 90 1RF Dose Instruction: TAKE 1 TABLET BY MOUTH DAILY Rx Instructions: TAKE 1 TABLET BY MOUTH DAILY sertraline 50 mg tablet See Rx Instructions .ROUTE .COMPLEX Qty: 180 1RF Dose Instruction: TAKE 1 TABLET BY MOUTH EVERY DAY Rx Instructions: TAKE 2 TABLET BY MOUTH EVERY DAY Follow-up/Referrals: Mikey Sarabia MD [Primary Care Provider] - Time of Disposition: 12:08
[2024-09-01 11:46] VITALS: BP 141/73; PULSE 100; RESP 16; TEMP 36.8; O2SAT 98
== END 2024-09-01 12:10 | disposition home or self-care (01) ==
PROVIDERS: Emergency Provider Nurse Practitioner; PCP Family Medicine
DX: M77.8 Other enthesopathies, not elsewhere classified (principal); Z87.891 Personal history of nicotine dependence
CPT/HCPCS: 73630; 99213; G0463

== ENCOUNTER 2024-09-10 12:45 | Outpatient (CLI) | payer MEDICARE, SELFPAY | END 2024-09-10 12:46 | disposition home or self-care (01) | LOC: MICIMG 12:46 | PROVIDERS: PCP Family Medicine; Visit Provider Nurse Practitioner Family | DX: Z12.31 Encounter for screening mammogram for malignant neoplasm of breast (principal) | CPT/HCPCS: 77063; 77067 ==

== ENCOUNTER 2025-04-29 09:21 | Outpatient (CLI) | payer MEDICARE, SELFPAY ==
--- NOTE | ~2025-04-29 | XR_ITS ---
EXAMINATION: XR knee LT min 4V, 04/29/2025 9:45 CDT HISTORY: S86.912A - Strain of unspecified muscle(s) and tendon(s) ... COMPARISON: No comparisons available. Findings: No acute fracture or malalignment. Moderate tricompartmental degenerative changes Soft tissues unremarkable. Impression: No acute fracture or malalignment. Reviewed, dictated and finalized at location P. Impression: No acute fracture or malalignment.
== END 2025-04-29 09:22 | disposition home or self-care (01) ==
PROVIDERS: PCP Family Medicine; Visit Provider Family Medicine
DX: S86.912A Strain of unspecified muscle(s) and tendon(s) at lower leg level, left leg, initial encounter (principal); X58.XXXA Exposure to other specified factors, initial encounter; M17.10 Unilateral primary osteoarthritis, unspecified knee; M71.20 Synovial cyst of popliteal space [Baker], unspecified knee
CPT/HCPCS: 73564

== ENCOUNTER 2025-06-04 10:57 | Outpatient (CLI) | payer MEDICARE, SELFPAY ==
--- NOTE | 2025-06-04 11:11 | ECG_ITS ---
Test Date: 2025-06-04 11:39:55 Measurements Intervals [place] Rate: 77 P: 71 IA: 152 QRS: 60 QRSD: 86 T: 49 QT: 385 QTc: 437 Interpretive Statements SINUS RHYTHM WITH SINUS ARRHYTHMIA nonespecific st changes Compared to ECG 01/20/2024 11:44:01 ST (T wave) deviation now present Electronically Signed On 06-04-2025 19:03:58 MECHANICAL CAD DESIGNER by Neil Scott M.D.
[2025-06-04 11:50] LABS: Hematocrit 41.3 % (37.0-47.0); Hemoglobin 13.6 g/dL (12.0-15.0)
[2025-06-04 12:03] LABS: Albumin Level 4.4 g/dL (3.5-5.1); Estimated Glomerular Filt Rate 54
== END 2025-06-04 10:58 | disposition home or self-care (01) ==
PROVIDERS: PCP Family Medicine; Visit Provider Orthopaedic Surgery
DX: Z01.818 Encounter for other preprocedural examination (principal); I49.8 Other specified cardiac arrhythmias; R94.31 Abnormal electrocardiogram [ECG] [EKG]; Z79.899 Other long term (current) drug therapy
CPT/HCPCS: 80307; 82040; 82565; 85014; 85018; 93005